=== PATIENT | female | born 1960 | race Caucasian/White ===

== ENCOUNTER 2020-09-22 10:28 | Outpatient (CLI) | payer OTHER, SELFPAY | END 2020-09-22 10:29 | disposition home or self-care (01) | LOC: ANHCOVIDVC 10:28 | PROVIDERS: PCP Internal Medicine | DX: Z23 Encounter for immunization (principal) | CPT/HCPCS: 0001A; 91300 ==

== ENCOUNTER 2020-10-13 10:23 | Outpatient (CLI) | payer OTHER, SELFPAY | END 2020-10-13 10:24 | disposition home or self-care (01) | LOC: ANHCOVIDVC 10:23 | PROVIDERS: PCP Internal Medicine | DX: Z23 Encounter for immunization (principal) | CPT/HCPCS: 0002A; 91300 ==

== ENCOUNTER → 2021-12-28 08:23 | Outpatient (REF) | payer OTHER, SELFPAY | LOC: ANHLAB 08:23 | PROVIDERS: PCP Hospitalist; Visit Provider Nurse Practitioner | DX: L72.0 Epidermal cyst (principal) | CPT/HCPCS: 88304 ==

== ENCOUNTER 2024-09-24 13:29 | Emergency (ER) | payer OTHER, SELFPAY ==
[2024-09-24 13:38] VITALS: BP 153/71; PULSE 63; RESP 18; TEMP 37.3; O2SAT 98
--- NOTE | 2024-09-24 13:39 | ED.GENADULT ---
HPI - General Adult General Chief complaint: Recheck/Abnormal Lab/Rx Stated complaint: blood pressure Time Seen by Provider: 09/24/24 13:33 Source: patient Mode of arrival: ambulatory Limitations: no limitations History of Present Illness HPI narrative: Patient is a 63-year-old female presenting for blood pressure check. Patient states over the past 4 days her blood pressures at home have been reading 195/105 roughly. Patient has new blood pressure cuff and states they have been elevated over the last month intermittently. Patient was also switched to a different high blood pressure medication over the last month as well. Patient called PCP and was told they would call her back this evening. Denies any headache, vision changes, numbness, tingling or weak discharge extremities. Denies any chest pain, shortness of breath, fever, chills, nausea, vomiting, diarrhea. Related Data Home Medications ?Medication ?Instructions ?Recorded ?Confirmed ?Last Taken ?Type lisinopril 40 mg tablet 40 mg PO DAILY 05/21/19 Unknown History Allergies Allergy/AdvReac Type Severity Reaction Status Date / Time Rzvgsfz-NKU-NpG Reductase AdvReac Unknown Unknown Verified 09/24/24 13:46 Inhibitor (Ravpnjd-Vmt-Kup Reductase Inhibitor) Review of Systems Review of Systems: All systems reviewed & are unremarkable except as noted in HPI and below Constitutional: Constitutional: Denies body ache(s), Denies chills, Denies fatigue, Denies fever(s), Denies headache(s), Denies malaise and Denies weakness Eyes: Eyes: Denies blurry vision, Denies irritation and Denies loss of vision ENT: Denies otalgia, Denies headache(s), Denies nasal discharge, Denies sinus pain and Denies sore throat Cardiovascular: Cardiovascular: Denies chest pain, Denies irregular heart rhythm and Denies dyspnea Respiratory: Respiratory: Denies dyspnea Gastrointestinal: Gastrointestinal: Denies abdominal pain, Denies melena, Denies hematochezia, Denies diarrhea, Denies nausea and Denies vomiting Musculoskeletal: Musculoskeletal: Denies back pain, Denies myalgias and Denies arthralgias Integumentary/Breasts: Skin/Breast: Denies pruritus and Denies rash Neurologic: Denies headache(s), Denies loss of vision and Denies weakness Psychiatric: Psychiatric: Reports no additional psychiatric complaints Endocrine: Endocrine: Denies fatigue PMFSH Past Medical History Medical History Adult body mass index 40 and over Sleep apnea Broken arm Left arm. December 2017 Cholecystectomy planned 2010 History of measles, mumps, or rubella Chicken pox Fibroid tumor Melanoma 2004 GERD (gastroesophageal reflux disease) Recurrent UTI Hypertension Surgical History Surgical History H/O endoscopy 2012 H/O: hysterectomy 2004 History of appendectomy 1988 Family History Family History Father Hypertension Family history of coronary artery disease Family history of cardiovascular disease Mother Hypertension Family history of cardiovascular disease Other Cerebrovascular accident Diabetes mellitus Family history of alcoholism Family history of arthritis Family history of gout Family history of mental disorder Social History Social History Smoking status: Never smoker Smoking end date: 07/17/77 Alcohol intake: current Alcohol use details: Drink occasionally. Substance use: never Comments At time of signature, agree with nursing past medical, surgical, social and family history. There is no relevant family history pertinent to the presenting complaint. Exam Const: General: cooperative, healthy appearing, comfortable, no acute distress and well nourished Nutritional Appearance: well nourished Orientation/consciousness: patient oriented x3 Limitations: no limitations HENMT: Head: normal to inspection, normocephalic and atraumatic Ears: hearing grossly normal bilaterally and external ears normal Face/Nose/Sinus: Normal external nose present, normal facial exam and face symmetric Face and sinus: normal facial exam and face symmetric Mouth: Yes lip normal Eyes: General: appearance normal, both eyes and all related structures Alignment and Position: alignment normal and position normal Periorbital: periorbital findings normal Eyelids: eyelids normal Pupils: Equal, round and reactive pupils present EOM: EOMs intact bilaterally Neck: Neck: normal visual inspection, full ROM and supple Chest: Chest palpation & inspection: normal inspection of the chest Resp: Effort & Inspection: normal respiratory effort and able to speak in complete sentences Auscultation: clear to auscultation bilaterally Cardio: Rate: regular rate Rhythm: regular rhythm Heart sounds: S1 normal heart sound present and S2 normal heart sound present GI: Inspection: normal to inspection Skin: General skin exam: normal color and no rashes or lesions noted Neuro: General: patient oriented x3 and moves all extremities Cranial nerves: Yes Equal, round and reactive pupils present Speech: normal speech Gait exam (Neuro): Normal gait present Extrem: General: normal to inspection, full ROM and no edema Psych: Appearance: grossly normal and well kempt Mental Status: mental status grossly normal Speech and movement: Normal speech and movement present Affect: normal affect Attitude: cooperative Thought process: Normal thought process present Course Course Emergency Course: Patient is aware of diagnosis, understands and agrees to treatment plan. Anticipatory guidance given. Patient agrees to follow-up as directed and is aware of reasons to seek care at the emergency department. Portions of this record may have been created with voice recognition software Level of Care: Express Care Visit Vital Signs Vital signs: Vital Signs Temperature 37.3 C 09/24/24 13:38 Pulse Rate 63 09/24/24 13:38 Respiratory Rate 18 09/24/24 13:38 Blood Pressure 153/71 H 09/24/24 13:38 Pulse Oximetry 98 09/24/24 13:38 Oxygen Delivery Room Air 09/24/24 13:38 Temperature 37.3 C 09/24/24 13:38 Pulse Rate 63 09/24/24 13:38 Respiratory Rate 18 09/24/24 13:38 Blood Pressure 146/69 H 09/24/24 13:56 Pulse Oximetry 98 09/24/24 13:38 Oxygen Delivery Room Air 09/24/24 13:38 Reviewed Medical Decision Making MDM Narrative Medical decision making narrative: Discussed in depth foot dental causes of high blood pressure readings at home. Most likely cause is too small of cuff. Discussed anxiety and stress can also increase blood pressure. Patient reports she was very concerned about higher readings and then they just kept going up. Patient reports peace of mind and significant decrease in stress after readings in urgent care today. Patient has PCP appointment next month. Discussed red flag symptoms including vision changes, severe headache, numbness, tingling or weakness to extremities as signs to go straight to the emergency department. Pt well hydrated appearing, in no respiratory distress, hemodynamically stable. Recommend supportive care. The patient is stable at time of discharge the clinical impression was discussed and the patient was given the opportunity to ask questions, which were addressed as completely as possible given the information available at present. Anticipatory guidance and return to care precautions were discussed and the importance of primary care follow-up was stressed and encouraged. The patient voiced understanding of the plan, indications to return, and the need for follow-up. Exam findings show no acute concerns or changes Patient is appropriate for outpatient treatment and follow-up. Differential Diagnosis Differential Diagnosis: Hypertension Medical Records Medical records reviewed: Yes I reviewed the external patient's medical records. Vital Signs Vital Signs: Vital Signs Temperature 37.3 C 09/24/24 13:38 Pulse Rate 63 09/24/24 13:38 Respiratory Rate 18 09/24/24 13:38 Blood Pressure 153/71 H 09/24/24 13:38 Pulse Oximetry 98 09/24/24 13:38 Oxygen Delivery Room Air 09/24/24 13:38 Temperature 37.3 C 09/24/24 13:38 Pulse Rate 63 09/24/24 13:38 Respiratory Rate 18 09/24/24 13:38 Blood Pressure 146/69 H 09/24/24 13:56 Pulse Oximetry 98 09/24/24 13:38 Oxygen Delivery Room Air 09/24/24 13:38 Reviewed Discharge Plan Discharge Clinical Impression: Blood pressure check, Hypertension Patient Disposition: Home, Self-Care Condition: Stable Instructions: Hypertension (ED) Additional Instructions: Follow-up with your PCP and bring in blood pressure machine. As discussed the cuff may be too small or machine may need calibrated. You had to blood pressures today that were elevated but significantly lower than the ones you are having at home (153/71 followed by 146/69). This is reassuring. Continue taking blood pressure medications as prescribed. Your blood pressure was elevated above 120/80 today at Urgent Care. This puts you above the threshold for follow up visit with a primary care provider. High blood pressure does not usually cause any symptoms, however it may lead to kidney failure, stroke, heart disease just to name a few if untreated. If you have any headaches, vision changes, numbness, tingling or weakness to extremities please go straight to the emergency department. Some things that can help lower blood pressure are lifestyle modifications, such as light exercise, decreased salt in diet, and weight loss. It is important to follow up with a PCP about this within 1 week. Patient Language: Japanese Prescriptions: No Action lisinopril 40 mg tablet 40 mg PO DAILY Follow-up/Referrals: Aryan,Camilla Jean Baptiste MD [Primary Care Provider] - 3 Days Time of Disposition: 14:04
[2024-09-24 13:56] VITALS: BP 146/69
--- OUTSIDE RECORDS SUMMARY | 2024-09-24 15:02 | XMS_ITS | Clinical Summary ---
Author Organization [facility] Administrative Offices Address [address] [place] [id number] Care Team Providers Care Manager Inpatient Name Role Phone Unavailable Primary Care Provider Unavailabl e Allergies Active Allergy Reactions Criticality Noted Date Comments Lisinopril Swelling Medium 02/22/2022 Ndvbygy-Ovm-Lxa Reductase Inhibitors Other (See Comments) Low 09/09/2019 Raised liver enzymes Medications Cholecalciferol , Vitamin D3, 50 mcg (2,000 unit) Capsule 2,000 Units. Act phu cyanocobalamin (VITAMIN B-12) 100 mcg tablet Take 100 mcg by mouth daily. Active loratadine (CLARITIN) 10 mg tablet Take 10 mg by mouth daily. 3 Active dilTIAZem (CARDIZEM CD, CARTIA XT) 120 mg Controlled Delivery 24 hour capsule Take 1 Capsule (120 mg) by mouth daily. 30 Capsule 2 5 12/04/19 25 Active metoprolol tartrate (LOPRESSOR) 25 mg tablet TAKE 1/2 TABLET(12.5 MG) BY MOUTH TWICE DAILY 90 Tablet 4 09/04/19 25 Discontinue d(Alternate therapy prescribed) Active Problems Problem Noted Date Diagnosed Date Palpitations 04/29/2024 Family history of sudden 04/29/2024 Family history of stent 04/29/2024 Encounters Date Type Department Care Team Description 09/24/2024 Telephone [facility] [place] [address] [facility] [address] [place] [address] Hiren Orellana MD Med Change Request 09/23/2024 External Device Data STL ABSTRACTION Provider, Abstract 09/21/2024 External Device Data STL ABSTRACTION Provider, Abstract 09/20/2024 External Device Data STL ABSTRACTION Provider, Abstract 09/17/2024 External Device Data STL ABSTRACTION Provider, Abstract 09/05/2024 Telephone [facility] AT [address] [place] [address] Hiren Orellana MD appointment 09/04/2024 2:00 PM STEREO MAP PLOTTER OPERATOR Video Visit [facility] AT [address] [place] [address] Hiren Orellana MD Symptomatic PVCs (Primary Dx); PSVT (paroxysmal supraventricular tachycardia); Premature atrial contractions 09/03/2024 External Device Data STL ABSTRACTION Provider, Abstract 08/08/2024 External Device Data STL ABSTRACTION Provider, Abstract 08/07/2024 External Device Data STL ABSTRACTION Provider, Abstract 08/06/2024 External Device Data STL ABSTRACTION Provider, Abstract 07/30/2024 External Device Data STL ABSTRACTION Provider, Abstract 07/23/2024 External Device Data STL ABSTRACTION Provider, Abstract 07/03/2024 10:19 AM STEREO MAP PLOTTER OPERATOR - 07/03/2024 11:59 PM STEREO MAP PLOTTER OPERATOR Hospital Encounter [facility] [address] [place] [address], [address] [place] [address] Binta Mason NP Discharge Disposition: Home or Self Care 07/03/2024 10:00 AM STEREO MAP PLOTTER OPERATOR Office Visit [facility] At [address] [place] [address] Binta Mason NP Palpitations (Primary Dx); Supraventricular tachycardia 07/03/2024 Refill [facility] [address] [place] [address] Binta Mason NP from Last 3 Months Social History Tobacco Use Types Packs/Day Years Used Date Smoking Tobacco: Never Smokeless Tobacco: Never Tobacco Cessation:Counseling Given: Not Answered Comments Unknown Sex and Gender Information Value Date Recorded Sex Assigned at Not on file Legal Sex Female 11:26 AM CDT Gender Identity Not on file Sexual Orientation Not on file Last Filed Vital Signs Vital Sign Reading Time Taken Comments Blood Pressure 140/92 07/03/2024 9:51 AM STEREO MAP PLOTTER OPERATOR Pulse 67 07/03/2024 9:51 AM STEREO MAP PLOTTER OPERATOR Temperature - - Respiratory Rate - - Oxygen Saturation 97% 07/03/2024 9:51 AM STEREO MAP PLOTTER OPERATOR Inhaled Oxygen Concentration - - Weight 94.8 kg (209 lb) 07/03/2024 9:51 AM STEREO MAP PLOTTER OPERATOR Height 167.6 cm (5' 6 ) 04/29/2024 8:12 AM CDT Body Mass Index 33.73 04/29/2024 8:12 AM CDT Plan of Treatment Upcoming Encounters Date Type Department Care Team (Late st Contact Info) Description 11/06/2024 11:15 AM CDT Office Visit [facility] At [facility] [address] [address] [place] [id number] Shivam Brown MD [facility] [address] [facility] [address] [place] [address] Health Maintenance Due Date Last Done Comments Pre-Diabetes and Diabetes Screening 1961 CERVICAL CANCER SCREENING 12/03/1991 COLORECTAL SCREENING 2006 Colorectal Cancer Screening 2006 FIT-DNA Q 3 years 2006 FIT/FOBT Q 1 year 2006 Flex Sig/CT Colonography Q 5 years 2006 ZOSTER VACCINE (1 of 2) 12/03/2011 COVID-19 Vaccine (2023-2 5 season) 2024 12/29/2021, 05/10/2021, 10/13/2020, Additional history exists Preventative Visit- Commercial 07/17/2024 12/01/2021 , 09/09/2019 BREAST CANCER SCREENING 08/26/2025 08/26/2024, 12/01 DTAP/TDAP/TD VACCINES (4 - T d or Tdap) 06/16/2029 06/16/2019, 06/26/2018, 06/16/2018 RSV VACCINE (60+ or ) (1 - 1-dose 75+ series) 2036 INFLUENZA VACCINE Completed 08/15/2024, , 04/27/2020, Additional history exists Procedures Procedure Name Priority Date/Time Associated Diagnosis Comments TSH REFLEXIVE Routine 07/03/2024 10:25 AM STEREO MAP PLOTTER OPERATOR Palpitations MAGNESIUM LEVEL Routine 07/03/2024 10:25 AM STEREO MAP PLOTTER OPERATOR Palpitations BASIC METABOLIC PANEL Routine 07/03/2024 10:25 AM STEREO MAP PLOTTER OPERATOR Palpitations REFERENCE LAB PROCESSING FEE Routine 07/03/2024 10:25 AM STEREO MAP PLOTTER OPERATOR Palpitations from Last 3 Months Results * REFERENCE LAB PROCESSING FEE (07/03/2024 10:25 AM STEREO MAP PLOTTER OPERATOR) Pathologist [facility] REFERENCE LAB SENDOUT Sent to Ref Lab 07/03/2024 12:00 PM STEREO MAP PLOTTER OPERATOR [facility] Other, specify BLOOD SPECIMEN / Unknown Collection / Unknown 07/03/2024 10:25 AM STEREO MAP PLOTTER OPERATOR 07/03/2024 10:36 AM STEREO MAP PLOTTER OPERATOR Binta Mason DAM WORKER CHEMISTRY ORDERABLES Final Res ult [facility] CLIA# [id number] [address] [facility] [place] [address] * TSH REFLEXIVE (07/03/2024 10:25 AM STEREO MAP PLOTTER OPERATOR) Pathologist [facility] TSH 2.14 0.40 - 4.50 mIU/L [facility] Comment: Test Performed at: [place] [address] [place] [address] [facility] Blood 07/03/2024 10:2 5 AM STEREO MAP PLOTTER OPERATOR 07/03/2024 10:03 PM STEREO MAP PLOTTER OPERATOR Binta Mason DAM WORKER CHEMISTRY ORDERABLES Final Res ult [facility] [phone] [facility] [place] [address] [address] [place] [address] * MAGNESIUM LEVEL (07/03/2024 10:25 AM STEREO MAP PLOTTER OPERATOR) Pathologist [facility] MAGNESIUM 2.1 1.5 - 2.5 mg/dL [facility] Comment: Test Performed at: [place] [address] [place] [address] [facility] Vo Blood 07/03/2024 10:2 5 AM STEREO MAP PLOTTER OPERATOR 07/03/2024 10:03 PM STEREO MAP PLOTTER OPERATOR Binta Mason DAM WORKER CHEMISTRY ORDERABLES Final Res ult [facility] [phone] [facility] [place] [address] [place] [address] * BASIC METABOLIC PANEL (07/03/2024 10:25 AM STEREO MAP PLOTTER OPERATOR) Pathologist [facility] GLUCOSE 82 65 - 99 mg/dL [facility] Comment: Fasting reference interval BUN 7 7 - 25 mg/dL [facility] CREATININE 0.79 0.50 - 1.05 mg/dL [facility] GFR 85 > OR = 60 mL/min/1. 73m2 [facility] BUN/CREAT RATIO SEE NOTE: 6 - 22 (calc) [facility] Comment: Not Reported: BUN and Creatinine are within reference range. SODIUM 141 135 - 146 mmol/L [facility] POTASSIUM 3.9 3.5 - 5.3 mmol/L [facility] CHLORIDE 106 98 - 110 mmol/L [facility] CO2 25 20 - 32 mmol/L [facility] CALCIUM 9.3 8.6 - 10.4 mg/dL [facility] Comment: Test Performed at: [place] [address] [place] [address] [facility] Blood 07/03/2024 10:2 5 AM STEREO MAP PLOTTER OPERATOR 07/03/2024 10:03 PM STEREO MAP PLOTTER OPERATOR Binta Mason DAM WORKER CHEMISTRY ORDERABLES Final Res ult [facility] [phone] [facility] [address] [place] [address] from Last 3 Months Insurance [employer] [facility] [place]
--- OUTSIDE RECORDS SUMMARY | 2024-09-24 15:02 | XMS_ITS | Clinical Summary ---
Author Organization [facility] at the Medical Office Building Address [address] [place] [address] Care Team Providers Care Midwife Name Role Phone Camilla Baeza MD Primary Care Pro vider Camilla Baeza MD Unavailable Allergies Active Allergy Reactions Criticality Noted Date Comments Lisinopril Swelling Medium 02/22/2022 Pyealed-Yct-Vdm Reductase Inhibitors Other (See comments) Low 09/09/2019 Raised liver enzymes Medications cholecalciferol (VITAMIN D-3) 2000 unit capsule 1 capsule (2,000 Units total) Active cyanocobalamin (Vitamin B-12) 100 mcg tabletIndicatio ns:Prevention of Vitamin B12 Deficiency Take 1 tablet (100 mcg total) by mouth daily Active fluticasone propionate (FLONASE) 50 mcg/actuation nasal spray SHAKE LQ AND U 2 SPRAYS IEN QD 08/22/2019 Active loratadine (CLARITIN) 10 mg tablet Take 1 tablet (10 mg total) by mouth daily 07/23/2022 Active metoprolol tartrate (LOPRESSOR) 25 mg immediate release tablet Take 0.5 tablets (12.5 mg total) by mouth 2 (two) times a day 07/03/2024 Active Active Problems Problem Noted Date Diagnosed Date Primary hypertension 02/22/2022 Assessment & Plan (02/22/2022 1:21 PM CDT): Side effects to lisinopril, d/c and updated allergies Blood pressure at goal off medications Continue regular exercise Pure hypercholesterolemia 02/22/2022 Assessment & Plan (02/22/2022 1:26 PM CDT): Recent LDL 159>131 ASVCD 10y risk 4.2%, statin not indicated, ruel given history of elevated lft Continue working on diet/exercise TED on CPAP 09/09/2019 Assessment & Plan (12/06/2021 5:32 AM CDT): Stable Continue CPAP Assessment & Plan (09/09/2019 10:00 AM DEAF/HARD OF HEARING SPECIALIST): Stable Class 2 obesity due to exces s calories without serious comorbidity with body mass index (BMI) of 38.0 to 38.9 in adult 09/09/2019 Assessment & Plan (04/27/2020 1:09 PM CDT): BMI Follow-up includes: nutrition counseling. Assessment & Plan (09/09/2019 10:57 AM DEAF/HARD OF HEARING SPECIALIST): BMI Follow-up includes: nutrition counseling. Annual physical exam 09/09/2019 Assessment & Plan (12/06/2021 5:35 AM CDT): PAP: s/p hysterectomy Mammo ordered Encouraged to schedule colonoscopy BP above goal, see below Body mass index is 38.67 kg/m . Discussed diet and exercise Feels safe at home Due for hep C screening: previously negative Discussed skin cancer prevention and screening: seeing rigging foreman tomorrow Check labs Assessment & Plan (09/09/2019 10:57 AM DEAF/HARD OF HEARING SPECIALIST): Former smoker (<1 pack year) Alcohol use: 6 drinks/week UTD on tdap, advised to get shingrex at pharmacy PAP not indicated, s/p hysterectomy Mammo ordered Sexual transmitted infection testing: low risk, declines BP 132/74, continue to monitor PHQ Screening PHQ-2 Total Score (If total score is 3 or more points, staff should administer the PHQ-9): 0 Body mass index is 41.02 kg/m . Discussed diet and exercise Due for hep C screening: previously negative Check labs GERD (gastroesophageal reflux disease) Assessment & Plan (09/09/2019 10:58 AM DEAF/HARD OF HEARING SPECIALIST): Patient desires to try lifestyle modification first, discussed and given handout If not improving or worsens trial of PPI x8w and consider EGD (no red flags at this time) Chronic sinusitis Assessment & Plan (09/09/2019 10:01 AM DEAF/HARD OF HEARING SPECIALIST): On flonase Follows with ENT, planning for sinus surgery Vitamin D deficiency Encounters Date Type Department Care Team Description 08/26/2024 9:45 AM DEAF/HARD OF HEARING SPECIALIST - 08/26/2024 11:59 PM DEAF/HARD OF HEARING SPECIALIST Hospital Encounter [facility] Breast Imaging [address] [place] [id number] Encounter for screening mammogram for breast cancer Discharge Disposition: Discharge to home or self care 08/15/2024 8:00 AM DEAF/HARD OF HEARING SPECIALIST Office Visit [facility] Medical [facility] Primary Care at [address] [place] [address] Camilla Baeza MD Acute cystitis with hematuria (Primary Dx); Need for vaccination; Encounter for screening mammogram for breast cancer 08/15/2024 Orders Only [facility] Primary Care at [address] [address] Camilla Baeza MD 08/14/2024 Telephone [facility] Primary Care at [address] [address] Camilla Baeza MD Additional Services Or Orders from Last 3 Months Immunizations Immunization Administration Dates Next Due DTaP 5 Pertussis 06/16/2018 Influenza, Quadrivalent, Svitlana l Culture-based MDCK, Antibiotic Free, Intramuscular 06/19/2018 Influenza, Quadrivalent, Spl it, Preservative Free, Intramuscular 04/27/2020 Influenza, Trivalent, IM (MDV) 05/10/2021 Influenza, Trivalent, Preser vative Free, Intramuscular 08/15/2024 Influenza, Unspecified 05/05/2021,06/16/2019 Pfizer SARS-CoV-2 Monovalent Vaccination (12+ Yrs) PURPLE 12/29/2021,05/10/2021,10/13/2020,09/22 Tdap 06/16/2019,06/26/2018 Surgical History Surgery Date Site/Laterality Comments HYSTERECTOMY 07/17/2005 CHOLECYSTECTOMY 07/17/2014 SKIN CANCER EXCISION 07/17/2004 Right Melanomia no treatment done BREAST BIOPSY Left benign COLONOSCOPY 06/27/2022 Medical History Medical History Date Comments Sleep difficulties sleep apnea GERD (gastroesophageal reflux disease) Irregular heart beat Family History Medical History Relation Name Comments Gout Father Family history of gout - (Added by TW Conv) Heart disease Father Family history of cardiac disorder - (Added by TW Conv) Hypertension Father Family history of hypertension - (Added by TW Conv) Mental illness Father FH: mental il lness - (Added by TW Conv) Stroke Father Thyroid disease Maternal Grandmother Arthritis Mother Family history of arthritis - (Added by TW Conv) Diabetes Mother Heart disease Mother Hypertension Mother Family history of hypertension - (Added by TW Conv) Thyroid disease Mother Breast cancer Paternal Grandmother Relation Name Status Comments Father Maternal Grandmother Mother Alive Paternal Grandmother Sister Alive Social History Tobacco Use Types Packs/Day Years Used Date Smoking Tobacco: Former Cigarettes 0.2 4 0 07/17/1975 - 07/17/1979 Smokeless Tobacco: Never Alcohol Use Standard Drinks/Week Comments Yes 6 (1 standard drink = 0.6 oz pur e alcohol) 3 times a week AUDIT-C Answer Date Recorded Frequency of Alcohol Consumption Not on file 02/22/2022 Q2: How many drinks containi ng alcohol do you have on a typical day when you are drinking? Patient does not drink Frequency of Binge Drinking Not on file 03/2022 PHQ-2 Answer Date Recorded PHQ-2 Total Score (If total score is 3 or more points, staff should administer the PHQ-9) 0 08/15/2024 Comments No Sex and Gender Information Value Date Recorded Sex Assigned at Not on file Legal Sex Female 2:32 AM DEAF/HARD OF HEARING SPECIALIST Gender Identity Female 06/23/2020 1:20 PM DEAF/HARD OF HEARING SPECIALIST Sexual Orientation Straight 01/26/2022 10 :17 AM CDT Obstetrics History Para Term AB IAB SAB Ectopic Multiple Livin g Live Births 3 3 3 Date Outcome GA Total Labor Labor/2nd/3rd Weight Sex Type Anes PTL Jennifer A1 A5 Name Clin Term Term Term Last Filed Vital Signs Vital Sign Reading Time Taken Comments Blood Pressure 132/88 08/15/2024 8:05 AM DEAF/HARD OF HEARING SPECIALIST Pulse 60 08/15/2024 8:05 AM DEAF/HARD OF HEARING SPECIALIST Temperature 37 C (98.6 F) 08/15/2024 8:05 AM DEAF/HARD OF HEARING SPECIALIST Respiratory Rate 18 08/15/2024 8:05 AM DEAF/HARD OF HEARING SPECIALIST Oxygen Saturation 97% 08/15/2024 8:05 AM DEAF/HARD OF HEARING SPECIALIST Inhaled Oxygen Concentration - - Weight 95.8 kg (211 lb 3.2 oz) 08/15/2024 8:05 A M DEAF/HARD OF HEARING SPECIALIST Height 162.6 cm (5' 4 ) 08/15/2024 8:05 AM DEAF/HARD OF HEARING SPECIALIST Body Mass Index 36.25 08/15/2024 8:05 AM DEAF/HARD OF HEARING SPECIALIST Plan of Treatment Health Maintenance Due Date Last Done Comments Hepatitis B Screening 12/03/1979 Zoster Vaccine (1 of 2) 12/03/2011 Regular Well Visit/Exam 18-64 12/01/2022 12/01/2021, 09/09/2019 Covid-19 Vaccine ( season) 2024 07/04/2023, 12/29/2021, 12/29/2021, Additional history exists Depression Screening 08/15/2025 08/15/2024, 08/08/2022, 08/08/2022, Additional history exists Breast Cancer Screening-Mammogram 08/26/2025 08/26/2024, 12/01/2021, 07/17/2015 DTaP/Tdap/Td Vaccine (4 - Td or Tdap) 06/16/2029 06/16/2019, 06/26/2018, 06/16/2018 Colon Cancer Screening-Colonoscopy 06/27/2032 06/27/2022, 07/17/2011 Colon Cancer Screening-CT Colonography Discontinued 06/27/2022, 07/17/2011 Colon Cancer Screening-DNA Stool Discontinued 06/27/2022, 07/17/2011 Colon Cancer Screening-FIT Discontinued 06/27/2022, Colon Cancer Screening-Sigmoidoscopy Discontinued 06/27/2022, 07/17/2011 Hepatitis C Screening Completed 08/09/2022 Influenza Vaccine Completed 08/15/2024, , 05/05/2021, Additional history exists Pneumococcal vaccine <65 Aged Out No longer eligible based on patient's age to complete this topic Procedures Procedure Name Priority Date/Time Associated Diagnosis Comments SCREENING MAMMOGRAM BILATERAL W NILAY Schedule Routine, Read Routine (OP Routine) 08/26/2024 10:02 AM DEAF/HARD OF HEARING SPECIALIST Encounter for screening mammogram for breast cancer URINE CULTURE Routine 08/15/2024 9:39 AM DEAF/HARD OF HEARING SPECIALIST POCT URINALYSIS DIPSTICK Routine 08/15/2024 8:40 AM DEAF/HARD OF HEARING SPECIALIST Acute cystitis with hematuria HEPATITIS C ANTIBODY Routine 08/09/2022 8:43 AM DEAF/HARD OF HEARING SPECIALIST Need for hepatitis C screening test HM COLONOSCOPY Routine 06/27/2022 from Last 3 Months or Most Recently Relevant to Health Maintenance Results * Screening Mammogram Bilateral W Nilay (08/26/2024 10:02 AM DEAF/HARD OF HEARING SPECIALIST) Anatomical Region Laterality Modality Breast Bilateral Mammography Impressions 08/26/2024 10:07 AM DEAF/HARD OF HEARING SPECIALIST BI-RADS ATLAS category (overall): 1 - Negative There is no mammographic evidence of malignancy. A 1 year screening mammogram is recommended. The patient has been or will be contacted. We recommend annual screening mammography for women at average risk of breast cancer beginning at age 40, based on guidelines of the [employer] (ACR Practice Parameter for the Performance of Screening and Diagnostic Mammography) and [employer]. For women with and elevated risk of breast cancer, please refer to the ACR Practice Parameter for specific screening recommendations. The patient will be entered into a reminder system with a target due date of 1 year for her next screening exam. Narrative 08/26/2024 10:07 AM DEAF/HARD OF HEARING SPECIALIST Screening Mammogram Bilateral W Nilay: 08/26/24 The study was acquired using full field digital technology and interpreted from soft copy. 2D digital mammographic views, as well as 3D digital tomosynthesis were performed in the CC and MLO projections. CLINICAL: Encounter for screening mammogram for breast cancer. No relevant medical history has been documented for this patient. History of breast cancer in Paternal Grandmother. COMPARISONS: 12/01/2021 Screening Mammogram Bilateral W Nilay 08/21/2015 Breast Imaging Screening Outside Reference 04/16/2013 Breast Imaging Screening Outside Reference BREAST TISSUE: There are scattered areas of fibroglandular density. FINDINGS: No suspicious masses, suspicious calcifications, or other suspicious findings are seen within either breast. There has been no suspicious change. Camilla Baeza MD IMG MAMMO PROCEDU RES Final Result * (ABNORMAL) Urine culture (08/15/2024 9:39 AM DEAF/HARD OF HEARING SPECIALIST) Urine culture (A) [facility] Comment: CULTURE, URINE, ROUTINE Micro Number: [id number] Test Status: Final Specimen Source: Urine, clean catch Specimen Quality: Adequate Result: Greater than 100,000 CFU/mL of Klebsiella pneumoniae K.pneumoniae INT ARYA AMOX/CLAVULANATE S 4 AMP/SULBACTAM S <=2 CEFAZOLIN NR <=4 2 CEFEPIME S <=0.12 CEFTAZIDIME S <=1 CEFTRIAXONE S <=0.25 CIPROFLOXACIN S <=0.06 GENTAMICIN S <=1 IMIPENEM S <=0.25 LEVOFLOXACIN S <=0.12 MEROPENEM S <=0.25 NITROFURANTOIN S <=16 PIP/TAZOBACTAM S <=4 TRIMETHOPRIM/SULFA S <=20 S = Susceptible I = Intermediate R = Resistant NS = Not susceptible SDD = Susceptible Dose Dependent * = Not Tested NR = Not Reported NN = See Therapy Comments THERAPY COMMENTS Note 1: For infections other than uncomplicated UTI caused by E. coli, K. pneumoniae or P. mirabilis: Cefazolin is resistant if ARYA > or = 8 mcg/mL. (Distinguishing susceptible versus intermediate for isolates with ARYA < or = 4 mcg/mL requires additional testing.) Note 2: For uncomplicated UTI caused by E. coli, K. pneumoniae or P. mirabilis: Cefazolin is susceptible if ARYA <32 mcg/mL and predicts susceptible to the oral agents cefaclor, cefdinir, cefpodoxime, cefprozil, cefuroxime, cephalexin and loracarbef. 08/15/2024 9:39 AM DEAF/HARD OF HEARING SPECIALIST 08/15/2024 9:39 AM DEAF/HARD OF HEARING SPECIALIST Camilla Baeza MD LAB MICROBIOLOGY - GENERAL ORDERABLES Final Result [facility] [address] [place] [address] * (ABNORMAL) POCT urinalysis dipstick (08/15/2024 8:40 AM DEAF/HARD OF HEARING SPECIALIST) Color, Urine, POC Yellow Clarity, ur, POC Clear Clear Glucose, ur, POC Trace(A) Negative MG/DL Bilirubin, ur, POC 1+(A) Negative, Small, Moderate, Large Ketones, ur, POC Trace(A) Negative Specific [place], POC 1.020 1.003 - 1.030 Blood, ur, POC Negative Negative pH, ur, POC 5.5 5.0 - 8.0 Protein, ur, POC Trace(A) Negative Urobilinogen, urine, POC 0.2 0.2 - 1.0 mg/dL Nitrite, ur, POC Positive(A) Negative Leukocytes, ur, POC 1+(A) Negative Lot Number [id number] Urine 08/15/2024 8:40 AM DEAF/HARD OF HEARING SPECIALIST Camilla Baeza MD POINT OF CARE JENIFER T ORDERABLES Final Result * Hepatitis C antibody (08/09/2022 8:43 AM DEAF/HARD OF HEARING SPECIALIST) Hep C Ab <0.1 0.0 - 0.9 s/co ratio [facility] - Comment: Negative: < 0.8 Indeterminate: 0.8 - 0.9 Positive: > 0.9 HCV antibody alone does not differentiate between previous resolved infection and active infection. The CDC and current clinical guidelines recommend that a positive HCV antibody result be followed up with an HCV RNA test to support the diagnosis of acute HCV infection. [facility] offers Hepatitis C Virus (HCV) RNA, Diagnosis, CHILO (642015) and Hepatitis C Virus (HCV) Antibody with reflex to Quantitative Real-time PCR (259969). Blood 08/09/2022 8:43 AM DEAF/HARD OF HEARING SPECIALIST 08/09/2022 Narrative [facility] - 08/10/2022 7:09 AM DEAF/HARD OF HEARING SPECIALIST Performed at: - [facility] [address] [id number] Cutting Machine Tender: Randy Tanner PhD, Phone: [phone] us Camilla Baeza MD LAB MICROBIOLOGY - GENERAL ORDERABLES Final Result [facility] - 01 * COLONOSCOPY (06/27/2022) Scribed Colonoscopy Abnormal us Historical Provider HEALTH MAINTENANCE Final Result from Last 3 Months or Most Recently Relevant to Health Maintenance Insurance [employer] [facility] [id number] Care Teams Midwife Relationship Specialty Start Date End Date Camilla Baeza MD PCP - General 09/12/19 Camilla Baeza MD Family Medicine 09/12/19
--- OUTSIDE RECORDS SUMMARY | 2024-09-24 15:02 | XMS_ITS | Clinical Summary ---
Author Organization [facility] Address [address] [place] [address] Care Team Providers Care Eap Clinician Name Role Phone Justus Flores MD Primary Care Provider [phone] Source Comments [facility],non-owned Affiliates and Associated Physician Practices is amultiple site organization consisting of ambulatory clinics and hospital sitesin [place], [place], [place] and [place]. This disclosure is being madepursuant to the Care Everywhere program and may not contain all information available regarding this patient. Last updated 18.[facility] Allergies No known active allergies Medications * Be aware that medications may not be up to date on this document. Alwaysverify current medications with the patient. Medication Sig Dispensed Refills Start Date End Date Status LISINOPRIL PO Active benzonatate (TESSALON) 200 MG capsule Take 1 capsule by mouth 3 times daily as needed for Cough 30 capsule 05/08/2019 Active azithromycin (ZITHROMAX) 250 MG tablet Take 2 tabs today, then 1 tab daily for next 4 days 6 tablet 05/12/2019 Active Active Problems No known active problems Immunizations Name Administration Dates Next Due TDAP (7yrs+) 06/26/2018 Social History Tobacco Use Types Packs/Day Years Used Date Smoking Tobacco: Never Smokeless Tobacco: Never Sex and Gender Information Value Date Recorded Sex Assigned at Not on file Gender Identity Not on file Sexual Orientation Not on file Last Filed Vital Signs Vital Sign Reading Time Taken Comments Blood Pressure 128/86 05/12/2019 10:35 AM CDT Pulse 89 05/12/2019 10:35 AM CDT Temperature 36.9 C (98.4 F) 05/12/2019 10:35 AM CDT Respiratory Rate 16 05/12/2019 10:35 AM CDT Oxygen Saturation 96% 05/12/2019 10:35 AM CDT Inhaled Oxygen Concentration - - Weight 102.1 kg (225 lb) 05/12/2019 10:35 AM CDT Height 162.6 cm (5' 4 ) 05/12/2019 10:35 AM CDT Body Mass Index 38.62 05/12/2019 10:35 AM CDT Plan of Treatment Health Maintenance Due Date Last Done Comments COLOGUARD (AGES 45-75) - COL ON CA SCREENING 1961 COLON MONITORING 1961 COLONOSCOPY - COLON CA SCREENING 1961 CT COLONOGRAPHY - COLON CA SCREENING 1961 Colorectal Cancer Screening 1961 FIT - COLON CA SCREENING 1961 FLEX SIG - COLON CA SCREENING 1961 LIPID TESTING 1961 MAMMOGRAM 1961 PAP SMEAR 1961 HIV SCREENING 1976 HEPATITIS C SCREENING 11/28/1979 PNEUMOCOCCAL VACCINE 50+ (1 of 1 - PCV) 12/03/2011 ZOSTER VACCINE (1 of 2) 12/03/2011 SCREENING FOR DIABETES 03/26/2019 COVID-19 VACCINE ( - 2023-2 5 season) 2024 INFLUENZA VACCINE (#1) 2024 DEPRESSION SCREENING 07/17/2024 DTAP/TDAP/TD VACCINES (2 - T d or Tdap) 06/26/2028 06/26/2018 Respiratory Syncytial Virus (RSV) Vaccine Pt: or over 60 yrs (1 - 1-dose 75+ series) 2036 HEPATITIS B VACCINE Aged Out No longe r eligible based on patient's age to complete this topic HIB VACCINE Aged Out No longer eligi ble based on patient's age to complete this topic HPV VACCINE Aged Out No longer eligi ble based on patient's age to complete this topic MENINGOCOCCAL (Group B) VACCINE Aged Out No longer eligible based on patient's age to complete this topic MENINGOCOCCAL VACCINE Aged Out No julisa frantz eligible based on patient's age to complete this topic PNEUMOCOCCAL VACCINE Aged Out No long er eligible based on patient's age to complete this topic Care Teams Eap Clinician Relationship Specialty Start Date End Date Justus Flores MD PCP - General 12/30/21
--- OUTSIDE RECORDS SUMMARY | 2024-09-24 15:02 | XMS_ITS | Encounter Summary ---
Author Organization [facility] Address [address] [place] [address] Care Team Providers Care Warp Splitter Name Role Phone Unavailable Primary Care Provider Unavailabl e Reason for Visit * Reason Onset Date Comments Med Change Request 09/24/2024 Encounter Details Date Type Department Care Team (Late st Contact Info) Description 09/24/2024 Telephone [facility] EP AT [address] [place] [address] Hiren Orellana MD [address] [place] [address] [address] [place] [address] Med Change Request Social History Tobacco Use Types Packs/Day Years Used Date Smoking Tobacco: Never Smokeless Tobacco: Never Comments Unknown Sex and Gender Information Value Date Recorded Sex Assigned at Not on file Legal Sex Female 11:26 AM CDT Gender Identity Not on file Sexual Orientation Not on file documented as of this encounter Miscellaneous Notes * Telephone Encounter - Tess Hahn RN - 09/24/2024 11:02 AM CDT Images from the original note were not included. VM message left for Ms. Redman to please return call regarding medication dosage and follow up appointment. Direct call back number provided. Cici Guadalupe, ALEXANDRA to Me 09/24/24 10:48 AM Let's increase Diltiazem to 180 mg daily, continue tracking BP, and schedule f/u in clinic in 1 month. Thanks Me to [facility] [place] 09/24/24 10:20 AM Recent video visit with LW 09/04. She has a history of palpitations, PACs, PVCs and PSVT. Initially on metoprolol tartrate 12.5 mg twice a day and the dose was increased to 25 mg twice a day in July 2024 but continued to experience daily palpitations. Metoprolol was discontinued and a diltiazem CD 120 mg daily started. She has been having issues with rhythm and blood pressure with heart rate, extra beats and blood pressure (diastolic running 100-110 and systolic 150-160). She was to follow up in one month, but nothing currently scheduled. Please advise. Thank you Ani Redman to P [facility] At Nurse (supporting Hiren Orellana MD) SB 09/23/24 7:24 PM I went to the [facility] to have BP checked 157/96. My last one was about the same. This was about an hour after my daily dose of diltiazem hydrochoride documented in this encounter Plan of Treatment Upcoming Encounters Date Type Department Care Team (Late st Contact Info) Description 11/06/2024 11:15 AM CDT Office Visit [facility] [address] [place] [address] Shivam Brown MD [address] [place] [address] documented as of this encounter Visit Diagnoses Not on filedocumented in this encounter
--- OUTSIDE RECORDS SUMMARY | 2024-09-24 15:02 | XMS_ITS | Encounter Summary ---
Author Organization [facility] Address [address] [place] [address] Care Team Providers Care Ag Equipment Field Service Technician Name Role Phone Unavailable Primary Care Provider Unavailabl e Encounter Details Date Type Department Care Team (Late st Contact Info) Description 09/21/2024 External Device Data [facility] ABSTRACTION Provider, Abstract NO ADDRESS ON FILE Social History Tobacco Use Types Packs/Day Years Used Date Smoking Tobacco: Never Smokeless Tobacco: Never Comments Unknown Sex and Gender Information Value Date Recorded Sex Assigned at Not on file Legal Sex Female 11:26 AM CDT Gender Identity Not on file Sexual Orientation Not on file documented as of this encounter Plan of Treatment Upcoming Encounters Date Type Department Care Team (Late st Contact Info) Description 11/06/2024 11:15 AM CDT Office Visit [facility] At [place] [address] [place] [phone] Shivam Brown MD [facility] [address] [place] [address] documented as of this encounter Visit Diagnoses Not on filedocumented in this encounter
--- OUTSIDE RECORDS SUMMARY | 2024-09-24 15:02 | XMS_ITS | Referral Summary ---
Author Organization [email or web address] Address [address] [place] [address] Care Team Providers Care Set Up Worker Name Role Phone Justus Flores MD Primary Care Provider Source Comments [email or web address],non-owned Affiliates and Associated Physician Practices is amultiple site organization consisting of ambulatory clinics and hospital sitesin [place], [place], [place] and [place]. This disclosure is being madepursuant to the Care Everywhere program and may not contain all information available regarding this patient. Last updated 18.[email or web address] Allergies No known active allergies Medications * [...] 05/12/2019 10:35 AM CDT Plan of Treatment Not on file Care Teams Set Up Worker Relationship Specialty Start Date End Date Justus Flores MD PCP - General 12/30/21
--- OUTSIDE RECORDS SUMMARY | 2024-09-24 15:02 | XMS_ITS | Encounter Summary ---
Author Organization [facility] Healthcare Address [address] [place] [address] Care Team Providers Care Residential Door Unit Installer Name Role Phone Camilla Baeza MD Primary Care Pro vider Camilla Baeza MD Unavailable Reason for Visit * Reason Onset Date Comments Additional Services Or Orders 08/14/2024 Encounter Details Date Type Department Care Team ([facility] st Contact Info) Description 08/14/2024 Telephone [facility] Medical [facility] Primary Care at [address] [phone] Camilla Baeza MD [address] [place] [phone] Additional Services Or Orders Social History Tobacco Use Types Packs/Day Years [...] on file Legal Sex Female 2:32 AM CORRECTIONAL AGENCY DIRECTOR Gender Identity Female 06/23/2020 1:20 PM CORRECTIONAL AGENCY DIRECTOR Sexual Orientation Straight 01/26/2022 10 :17 AM CDT documented as of this encounter Plan of Treatment Not on file documented as of this encounter Visit Diagnoses Not on filedocumented in this encounter Care Teams Residential Door Unit Installer Relationship Specialty Start Date End Date Camilla Baeza MD PCP - General 09/12/19 Camilla Baeza MD Family Medicine 09/12/19 documented as of this encounter
--- OUTSIDE RECORDS SUMMARY | 2024-09-24 15:02 | XMS_ITS | Encounter Summary ---
Author Organization [facility] Address [address] [place] [address] Care Team Providers Care Team Otr Truck Driver Name Role Phone Unavailable Primary Care Provider Unavailabl e Encounter Details Date Type Department Care Team (Late st Contact Info) Description 09/23/2024 External Device Data ST[facility] ABSTRACTION Provider, [...] Description 11/06/2024 11:15 AM CDT Office Visit [facility] [place] [address] [place] [phone] Shivam Brown MD [facility] [address] [place] [id number] documented as of this encounter Visit Diagnoses Not on filedocumented in this encounter
--- OUTSIDE RECORDS SUMMARY | 2024-09-24 15:02 | XMS_ITS | Referral Summary ---
Author Organization [facility] Building Address [address] [place] [id number] Care Team Providers Care Regional Refrigerated Cdl Truck Driver Name Role Phone Camilla Baeza MD Primary Care Pro vider Camilla Baeza MD Unavailable Encounters Date Type Department Care Team Description 08/26/2024 9:45 AM HALL DIRECTOR - 08/26/2024 11:59 PM HALL DIRECTOR Hospital Encounter [facility] [address] [place] [phone] Encounter for screening mammogram for breast cancer Discharge Disposition: Discharge to home or self care 08/15/2024 Orders Only [facility] Primary Care at [address] [phone] Camilla Baeza MD 08/15/2024 8:00 AM HALL DIRECTOR Office Visit [facility] Primary Care at [address] [phone] Camilla Baeza MD Acute cystitis with hematuria (Primary Dx); Need for vaccination; Encounter for screening mammogram for breast cancer 08/14/2024 Telephone [facility] Primary Care at [address] [phone] Camilla Baeza MD Additional Services Or Orders from Last 3 Months Allergies Active Allergy Reactions Criticality Noted Date Comments Lisinopril Swelling Medium 02/22/2022 [id number] Reductase Inhibitors Other (See comments) Low 09/09/2019 [...] CPAP Assessment & Plan (09/09/2019 10:00 AM HALL DIRECTOR): Stable Class 2 obesity due to exces s calories without serious comorbidity with body mass index (BMI) of 38.0 to 38.9 in adult 09/09/2019 Assessment & Plan (04/27/2020 1:09 PM CDT): BMI Follow-up includes: nutrition counseling. Assessment & Plan (09/09/2019 10:57 AM HALL DIRECTOR): BMI Follow-up includes: nutrition counseling. Annual physical exam 09/09/2019 Assessment & Plan (12/06/2021 5:35 AM CDT): PAP: s/p hysterectomy Mammo ordered Encouraged to schedule colonoscopy BP above goal, see below Body mass index is 38.67 kg/m . Discussed diet and exercise Feels safe at home Due for hep C screening: previously negative Discussed skin cancer prevention and screening: seeing practice coordinator tomorrow Check labs Assessment & Plan (09/09/2019 10:57 AM HALL DIRECTOR): Former smoker (<1 pack year) Alcohol use: [...] disease) Assessment & Plan (09/09/2019 10:58 AM HALL DIRECTOR): Patient desires to try lifestyle modification first, discussed and given handout If not improving or worsens trial of PPI x8w and consider EGD (no red flags at this time) Chronic sinusitis Assessment & Plan (09/09/2019 10:01 AM HALL DIRECTOR): On flonase Follows with ENT, planning for sinus surgery Vitamin D deficiency Immunizations Immunization Administration Dates Next Due DTaP 5 Pertussis 06/16/2018 Influenza, Quadrivalent, Svitlana l Culture-based MDCK, Antibiotic Free, Intramuscular 06/19/2018 Influenza, Quadrivalent, Spl it, Preservative Free, Intramuscular 04/27/2020 Influenza, Trivalent, IM (MDV) 05/10/2021 Influenza, Trivalent, Preser vative Free, Intramuscular 08/15/2024 Influenza, Unspecified 05/05/2021,06/16/2019 Pfizer SARS-CoV-2 Monovalent Vaccination (12+ Yrs) PURPLE 12/29/2021,05/10/2021,10/13/2020,09/22 Tdap 06/16/2019,06/26/2018 Social History Tobacco Use Types Packs/Day Years [...] on file Legal Sex Female 2:32 AM HALL DIRECTOR Gender Identity Female 06/23/2020 1:20 PM HALL DIRECTOR Sexual Orientation Straight 01/26/2022 10 :17 AM CDT Last Filed Vital Signs Vital Sign Reading Time Taken Comments Blood Pressure 132/88 08/15/2024 8:05 AM HALL DIRECTOR Pulse 60 08/15/2024 8:05 AM HALL DIRECTOR Temperature 37 C (98.6 F) 08/15/2024 8:05 AM HALL DIRECTOR Respiratory Rate 18 08/15/2024 8:05 AM HALL DIRECTOR Oxygen Saturation 97% 08/15/2024 8:05 AM HALL DIRECTOR Inhaled Oxygen Concentration - - Weight 95.8 kg (211 lb 3.2 oz) 08/15/2024 8:05 A M HALL DIRECTOR Height 162.6 cm (5' 4 ) 08/15/2024 8:05 AM HALL DIRECTOR Body Mass Index 36.25 08/15/2024 8:05 AM HALL DIRECTOR Plan of Treatment Not on file Procedures Procedure Name Priority Date/Time Associated Diagnosis Comments SCREENING MAMMOGRAM BILATERAL W NILAY Schedule Routine, Read Routine (OP Routine) 08/26/2024 10:02 AM HALL DIRECTOR Encounter for screening mammogram for breast cancer URINE CULTURE Routine 08/15/2024 9:39 AM HALL DIRECTOR POCT URINALYSIS DIPSTICK Routine 08/15/2024 8:40 AM HALL DIRECTOR Acute cystitis with hematuria HEPATITIS C ANTIBODY Routine 08/09/2022 8:43 AM HALL DIRECTOR Need for hepatitis C screening test HM COLONOSCOPY Routine 06/27/2022 from Last 3 Months or Most Recently Relevant to Health Maintenance Results * Screening Mammogram Bilateral W Nilay (08/26/2024 10:02 AM HALL DIRECTOR) Anatomical Region Laterality Modality Breast Bilateral Mammography Impressions 08/26/2024 10:07 AM HALL DIRECTOR BI-RADS ATLAS category (overall): 1 - Negative There is no mammographic evidence of malignancy. A 1 year screening mammogram is recommended. The patient has been or will be contacted. We recommend annual screening mammography for women at average risk of breast cancer beginning at age 40, based on guidelines of the [employer] (ACR Practice Parameter for the Performance of Screening and Diagnostic Mammography) and [employer]. For women with and elevated risk of breast cancer, please refer to the ACR Practice Parameter for specific screening recommendations. The patient will be entered into a reminder system with a target due date of 1 year for her next screening exam. Narrative 08/26/2024 10:07 AM HALL DIRECTOR Screening Mammogram Bilateral W Nilay: 08/26/24 The [...] breast. There has been no suspicious change. us Camilla Baeza MD IMG MAMMO PROCEDU RES Final Result * (ABNORMAL) Urine culture (08/15/2024 9:39 AM HALL DIRECTOR) Urine culture (A) [facility] Comment: CULTURE, URINE, ROUTINE Micro Number: [id number] Test Status: Final Specimen Source: Urine, clean [...] cefuroxime, cephalexin and loracarbef. 08/15/2024 9:39 AM HALL DIRECTOR 08/15/2024 9:39 AM HALL DIRECTOR us Camilla Baeza MD LAB MICROBIOLOGY - GENERAL ORDERABLES Final Result [facility] [address] [place] [address] * (ABNORMAL) POCT urinalysis dipstick (08/15/2024 8:40 AM HALL DIRECTOR) Color, Urine, POC Yellow Clarity, ur, POC Clear Clear Glucose, ur, POC Trace(A) Negative MG/DL Bilirubin, ur, POC 1+(A) Negative, Small, Moderate, Large Ketones, ur, POC Trace(A) Negative Specific [place], POC 1.020 1.003 - 1.030 Blood, ur, POC Negative Negative pH, ur, POC 5.5 5.0 - 8.0 Protein, ur, POC Trace(A) Negative Urobilinogen, urine, POC 0.2 0.2 - 1.0 mg/dL Nitrite, ur, POC Positive(A) Negative Leukocytes, ur, POC 1+(A) Negative Lot Number [id number] Urine 08/15/2024 8:40 AM HALL DIRECTOR Camilla Baeza MD POINT OF CARE JENIFER T ORDERABLES Final Result * Hepatitis C antibody (08/09/2022 8:43 AM HALL DIRECTOR) Hep C Ab <0.1 0.0 - 0.9 [...] support the diagnosis of acute HCV infection. [facility] offers Hepatitis C Virus (HCV) RNA, Diagnosis, CHILO (458842) and Hepatitis C Virus (HCV) Antibody with reflex to Quantitative Real-time PCR (220688). Blood 08/09/2022 8:43 AM HALL DIRECTOR 08/09/2022 Narrative [facility] - 08/10/2022 7:09 AM HALL DIRECTOR Performed at: - [address] [id number] Screen Making Technician: Randy Tanner PhD, Phone: [phone] Camilla Baeza MD LAB MICROBIOLOGY - GENERAL ORDERABLES Final Result [facility] - 01 * COLONOSCOPY (06/27/2022) Scribed Colonoscopy Abnormal Historical Provider MD HEALTH MAINTENANCE Final Result from Last 3 Months or Most Recently Relevant to Health Maintenance Insurance InPlace [facility] [id number] [facility] [id number] Care Teams Regional Refrigerated Cdl Truck Driver Relationship Specialty Start Date End Date Camilla Baeza MD PCP - General 09/12/19 Camilla Baeza MD Family Medicine 09/12/19
--- OUTSIDE RECORDS SUMMARY | 2024-09-24 15:02 | XMS_ITS | Patient Health Summary ---
Author Organization [facility] Address [address] [facility] [place] [address] Care Team Providers Care Injection Molder Name Role Phone Justus Flores MD Primary Care Provider [phone] Note from [facility],non-owned Affiliates and Associated Physician Practices is amultiple site organization consisting of ambulatory clinics and hospital sitesin [place], [place], [place] and [place]. This disclosure is being madepursuant to the Care Everywhere program and may not contain all information available regarding this patient. Last updated 18.[facility] Allergies No known active allergies Medications * Be aware that medications may not be up to date on this document. Alwaysverify current medications with the patient. * LISINOPRIL PO * benzonatate (TESSALON) 200 MG capsule(Started 05/08/2019) Take 1 capsule by mouth 3 times daily as needed for Cough * azithromycin (ZITHROMAX) 250 MG tablet(Started 05/12/2019) Take 2 tabs today, then 1 tab daily for next 4 days Active Problems No known active problems Immunizations * TDAP (7yrs+)(Given 06/26/2018) Social History Tobacco Use Types Packs/Day Years [...] Mass Index 38.62 05/12/2019 10:35 AM CDT Care Teams Injection Molder Relationship Specialty Start Date End Date Justus Flores MD PCP - General 12/30/21
== END 2024-09-24 14:06 | disposition home or self-care (01) ==
PROVIDERS: Emergency Provider Nurse Practitioner Family; PCP Hospitalist
DX: I10 Essential (primary) hypertension (principal)
CPT/HCPCS: 99211; G0463